=== PATIENT | female | born 2000 | race Caucasian/White ===

== ENCOUNTER → 2023-09-23 08:34 | Outpatient (REF) | payer BC, SELFPAY | LOC: HWRAD 08:34 | PROVIDERS: ATTENDING PHYSICIAN Family Medicine | DX: R10.12 Left upper quadrant pain (principal); K59.09 Other constipation | CPT/HCPCS: 74177; Q9967 ==

== ENCOUNTER → 2025-05-18 12:11 | Outpatient (REF) | payer BC, SELFPAY | LOC: WDC 12:11 | PROVIDERS: ATTENDING PHYSICIAN Family Medicine | DX: R22.32 Localized swelling, mass and lump, left upper limb (principal) | CPT/HCPCS: 76642 ==